=== PATIENT | female | born 1990 | race Hispanic/Latino ===

== ENCOUNTER 2023-02-03 21:31 | Emergency (ER) | payer MEDICAID, OTHER ==
[~2023-02-03] VITALS: Ht 152.4 cm; Wt 117.0 kg
[2023-02-03] MEDS ORDERED: TETANUS/DIPHTHERIA TOXOID [ADULT] 0.5 ML VIAL IM ONE (22:00)
[2023-02-03 22:10] VITALS: BP 142/60; PULSE 78; RESP 16; O2SAT 98
== END 2023-02-03 22:28 | disposition home or self-care (01) ==
LOC: EDH 21:31
DX: S51.811A Laceration without foreign body of right forearm, initial encounter (principal); Z98.890 Other specified postprocedural states; Y93.69 Activity, other involving other sports and athletics played as a team or group; Y93.89 Activity, other specified; Y92.89 Other specified places as the place of occurrence of the external cause; Y99.8 Other external cause status
CPT/HCPCS: 12001; 90471; 90714

== ENCOUNTER 2023-02-10 18:23 | Emergency (ER) | payer OTHER ==
[~2023-02-10] VITALS: Ht 152.4 cm; Wt 108.0 kg
[2023-02-10 18:24] VITALS: BP 147/82; PULSE 73; RESP 16
== END 2023-02-10 21:31 | disposition left against medical advice (07) ==
LOC: EDH 18:23
DX: Z48.02 Encounter for removal of sutures (principal); Z53.21 Procedure and treatment not carried out due to patient leaving prior to being seen by health care provider
CPT/HCPCS: 99281